=== PATIENT | female | born 1940 | race Caucasian/White ===

== ENCOUNTER 2024-01-05 08:46 | Outpatient (RCR) | payer MEDICARE, OTHER, SELFPAY | END 2024-06-06 10:45 | disposition home or self-care (01) | LOC: PT 08:46 | PROVIDERS: PCP Family Medicine; Visit Provider Internal Medicine Rheumatology | DX: M48.061 Spinal stenosis, lumbar region without neurogenic claudication (principal); M54.50 Low back pain, unspecified | CPT/HCPCS: 97010; 97012; 97110; 97113; 97140; 97162; 97530; G0283 ==

== ENCOUNTER 2024-05-09 08:13 | Outpatient (OUT) | payer MEDICARE, OTHER, SELFPAY ==
--- NOTE | 2024-05-09 08:31 | CT_ITS ---
[address] [address] Patient Name: ERNESTO REIS MRN: [id number] date: 1940 Sex: F Assigned Patient Location: LAB Current Patient Location: LAB Accession/Order Number: [id number] Exam Date: 05/09/2024 10:17 Report Date: 05/09/2024 13:01 At the request of: FAY ROTHMAN Procedure: CT chest w con EXAMINATION: CT chest w con, CT abdomen pelvis w con HISTORY: Weight Loss, Inflammation COMPARISON: No relevant comparison available. TECHNIQUE: After obtaining the patient's consent, CT images of the chest, abdomen and pelvis were obtained with non-ionic intravenous contrast material. Axial, Coronal, and Sagittal images. Multi-planar reformatted/3-D images were created to optimize visualization of vascular anatomy. Dose reduction techniques were achieved by using automated exposure control and/or adjustment of mA and/or kV according to patient size and/or use of iterative reconstruction technique. FINDINGS: VASCULATURE: Normal postcontrast opacification of the central pulmonary arterial tree with no filling defect to suggest a pulmonary embolus LUNGS: No visible pulmonary disease. PLEURA: No mass, effusion, or pneumothorax. KIESHA: Calcified right hilar lymph node MEDIASTINUM: No mass or adenopathy. CARDIAC: No enlargement or pericardial effusion Coronary arteries: Moderate calcifications CHEST WALL: No mass or axillary adenopathy. AORTA/VASCULAR: No aortic aneurysm or dissection. Mild to moderate calcific atherosclerosis CELIAC ARTERY: Normal celiac vessels. SMA: Normal mesenteric vessels. RENAL ARTERIES: Single right renal. Single left renal. Ostial atherosclerosis with mild narrowing of the right and moderate narrowing of the left. Iliacs: No aneurysm. Mild to moderate atherosclerosis LIVER: No enlargement, atrophy, abnormal density, or significant focal lesion. BILIARY: No visible dilatation or calcification. PANCREAS: No lesion, fluid collection, ductal dilatation, or atrophy. SPLEEN: Punctate calcifications, prior granulomatous process ADRENALS: No mass or enlargement. KIDNEYS: No mass, obstruction, or calcification. BOWEL/MESENTERY: Colonic diverticulosis without evidence of acute diverticulitis. Nonobstructive bowel gas pattern RETROPERITONEUM: No mass or adenopathy. ABDOMINAL WALL: No mass or hernia. BONES: Moderate diffuse degenerative changes. 9mm anterolisthesis of L4 in relation L5. 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 CT/CT chest w con IMPRESSION: No central pulmonary thromboembolic disease No acute intrathoracic or intraperitoneal abnormality Electronically authenticated by: KIRBY RASCON Date: 05/09/2024 13:01
--- NOTE | 2024-05-09 08:31 | CT_ITS ---
[address] [address] Patient Name: ERNESTO REIS MRN: [id number] date: 1940 Sex: F Assigned Patient Location: LAB Current Patient Location: LAB Accession/Order Number: [id number] Exam Date: 05/09/2024 10:17 Report Date: 05/09/2024 13:01 At the request of: FAY ROTHMAN Procedure: CT abdomen pelvis w con EXAMINATION: CT chest w con, CT abdomen pelvis w con HISTORY: Weight Loss, Inflammation COMPARISON: No relevant comparison available. TECHNIQUE: After obtaining the patient's consent, CT images of the chest, abdomen and pelvis were obtained with non-ionic intravenous contrast material. Axial, Coronal, and Sagittal images. Multi-planar reformatted/3-D images were created to optimize visualization of vascular anatomy. Dose reduction techniques were achieved by using automated exposure control and/or adjustment of mA and/or kV according to patient size and/or use of iterative reconstruction technique. FINDINGS: VASCULATURE: Normal postcontrast opacification of the central pulmonary arterial tree with no filling defect to suggest a pulmonary embolus LUNGS: No visible pulmonary disease. PLEURA: No mass, effusion, or pneumothorax. KIESHA: Calcified right hilar lymph node MEDIASTINUM: No mass or adenopathy. CARDIAC: No enlargement or pericardial effusion Coronary arteries: Moderate calcifications CHEST WALL: No mass or axillary adenopathy. AORTA/VASCULAR: No aortic aneurysm or dissection. Mild to moderate calcific atherosclerosis CELIAC ARTERY: Normal celiac vessels. SMA: Normal mesenteric vessels. RENAL ARTERIES: Single right renal. Single left renal. Ostial atherosclerosis with mild narrowing of the right and moderate narrowing of the left. Iliacs: No aneurysm. Mild to moderate atherosclerosis LIVER: No enlargement, atrophy, abnormal density, or significant focal lesion. BILIARY: No visible dilatation or calcification. PANCREAS: No lesion, fluid collection, ductal dilatation, or atrophy. SPLEEN: Punctate calcifications, prior granulomatous process ADRENALS: No mass or enlargement. KIDNEYS: No mass, obstruction, or calcification. BOWEL/MESENTERY: Colonic diverticulosis without evidence of acute diverticulitis. Nonobstructive bowel gas pattern RETROPERITONEUM: No mass or adenopathy. ABDOMINAL WALL: No mass or hernia. BONES: Moderate diffuse degenerative changes. 9mm anterolisthesis of L4 in relation L5. 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 CT/CT abdomen pelvis w con IMPRESSION: No central pulmonary thromboembolic disease No acute intrathoracic or intraperitoneal abnormality Electronically authenticated by: KIRBY RASCON Date: 05/09/2024 13:01
[2024-05-09 08:37] LABS: Estimated GFR (African America >60 (>=60); Estimated GFR (Non-African Ame >60 (>=60)
== END 2024-05-09 08:14 | disposition home or self-care (01) ==
LOC: LAB 08:13
PROVIDERS: PCP Family Medicine; Visit Provider Internal Medicine Rheumatology
DX: R63.4 Abnormal weight loss (principal)
CPT/HCPCS: 36415; 71260; 74177; 82565; Q9967